=== PATIENT | female | born 1965 | race American Indian/Alaskan Native ===

== ENCOUNTER 2017-08-12 05:55 | Day surgery (SDC) | payer OTHER ==
[2017-08-10 11:08] LABS: Hematocrit 41.6 % (30.3-42.9); Mean Corpuscular HGB Conc 34 % (30-34); Mean Corpuscular Hemoglobin 30 pg (28-32); Mean Corpuscular Volume 88 fl (79-97); Platelet Count 312 K/mm3 (140-440); Red Blood Count 4.75 M/mm3 (3.65-5.03); Red Cell Distribution Width 14.6 % (13.2-15.2); White Blood Count 4.9 K/mm3 (4.5-11.0)
[2017-08-10 11:16] LABS: Anion Gap 14 mmol/L; BUN/Creatinine Ratio 15.71; Blood Urea Nitrogen 11 mg/dL (7-17); Calcium 8.8 mg/dL (8.4-10.2); Carbon Dioxide 30 mmol/L (22-30); Glucose 89 mg/dL (65-100); Potassium 3.4 mmol/L (3.6-5.0); Sodium 142 mmol/L (137-145)
--- NOTE | 2017-08-10 14:19 | Anesthesia Consultation ---
Anesthesia Consult and Med Hx Date of service: 08/10/17 - Airway Anesthetic Teeth Evaluation: Good ROM Head & Neck: Adequate Mental/Hyoid Distance: Adequate Mallampati Class: Class II Intubation Access Assessment: Probably Good - Pre-Operative Health Status ASA Pre-Surgery Classification: ASA2 Proposed Anesthetic Plan: General - Cardiovascular System Hx Hypertension: Yes (x 10 yrs) Hx Coronary Artery Disease: No (high cholesterol) - Central Nervous System Hx Psychiatric Problems: No - Gastrointestinal Hx Gastroesophageal Reflux Disease: Yes (diet controlled) - Endocrine Hx Hypothyroidism: Yes (s/p thyroidectomy) - Other Systems Hx Alcohol Use: Yes (occas) Hx Cancer: Yes
[2017-08-12] MEDS ORDERED: NACL BACTERIOSTATIC INFILTRATI ONE (06:42)
[2017-08-12] MEDS ORDERED: PERCOCET 5/325 PO PRN (06:55)
[2017-08-12] MEDS ORDERED: DILAUDID IV PRN (06:55)
[2017-08-12] MEDS ORDERED: ZOFRAN IV PRN (06:55)
[2017-08-12] MEDS ORDERED: VERSED IV NR (07:00)
[2017-08-12] MEDS ORDERED: PEPCID IV NR (07:00)
[2017-08-12] MEDS ORDERED: LACTATED RINGERS 1,000 ML IV SCH (07:00)
[2017-08-12] MEDS ORDERED: XYLOCAINE MPF 2% ONE (07:05)
[2017-08-12] MEDS ORDERED: DIPRIVAN 10 MG/ML IV ONE (07:05)
[2017-08-12] MEDS ORDERED: ZOFRAN ONE (07:06)
[2017-08-12] MEDS ORDERED: DECADRON ONE (07:06)
[2017-08-12] MEDS ORDERED: DILAUDID ONE (07:06)
[2017-08-12] MEDS ORDERED: ZEMURON IV ONE (07:06)
[2017-08-12] MEDS ORDERED: GARAMYCIN IV SCH (07:15)
--- NOTE | 2017-08-12 07:16 | Short Stay Summary ---
Short Stay Documentation Date of service: 08/12/17 Narrative H&P: Pt is a 52yo BF LMP 10 years ago s/p hysterectomy presents for surgical evaluation and treatment of left sided pelvic pain. Pelvic u/s showed a right ovary 1.1 x 1.2cm She is therefore scheduled for a Laproscopic right oophorectomy with lysis of pelvic adhesions. - History Principal diagnosis: Pelvic pain H&P: obtained from office Past Medical History: hypertension Past Surgical History: thyroidectomy, hysterectomy Social history: no significant social history, single - Allergies and Medications Current Medications: Allergies Penicillins Allergy (Verified 08/09/17 17:10) Rash tegaderm Adverse Reaction (Uncoded 08/09/17 17:10) pulls off skin Home Medications Medication Instructions Recorded Confirmed Last Taken Type Hydrochlorothiazide [Hctz] 12.5 mg PO QDAY 08/09/17 08/12/17 08/11/17 History Levothyroxine [Synthroid] 100 mcg PO QAM 08/09/17 08/12/17 08/12/17 History Pravastatin Sodium [Pravastatin] 40 mg PO QHS 08/09/17 08/12/17 08/11/17 History amLODIPine [Norvasc] 10 mg PO DAILY 08/09/17 08/12/17 08/11/17 History Active Medications Famotidine (Pepcid) 20 mg IV PREOP NR Stop: 08/12/17 23:59 Last Admin: 08/12/17 07:00 Dose: 20 mg Hydromorphone HCl (Dilaudid) 0.5 mg IV Q10MIN PRN PRN Reason: Pain , Severe (7-10) Stop: 08/12/17 23:59 Lactated Ringer's (Lactated Ringers) 1,000 mls @ 100 mls/hr IV DIRECT AINSLEY Last Admin: 08/12/17 06:45 Dose: 100 mls/hr Midazolam HCl (Versed) 2 mg IV PREOP NR Stop: 08/12/17 23:59 Last Admin: 08/12/17 07:03 Dose: 2 mg - Physical exam General appearance: no acute distress Integumentary: no rash HEENT: Atraumatic Lungs: Clear to auscultation Breasts: deferred Heart: Regular rate Gastrointestinal: normal Female Genitourinary: deferred Rectal Exam: deferred Extremities: no ischemia Neurological: Normal gait, Normal speech - Brief post op/procedure progress note Date of procedure: 08/12/17 Pre-op diagnosis: 1. Pelvic pain 2. Right ovarian cyst Post-op diagnosis: same Procedure: 1. Laproscopic right oophorectomy 2. Lysis of pelvic adhesions Anesthesia: GETA Findings: Absent uterus and cervix. Absent left ovary and fallopian tubes bilaterally. A cystic right ovary. Bowel adhesions to the left pelvic sidewall. Normal appendix. Surgeon: GRACE HIGGINS Estimated blood loss: minimal Pathology: none (right cystic ovary) Specimen disposition: to lab Condition: stable - Hospital course Hospital course: Unremarkable. - Disposition Condition at discharge: Good Disposition: DC- TO HOME OR SELFCARE - Discharge Diagnoses (1) Right ovarian cyst Status: Acute (2) Pelvic adhesions Status: Chronic Short Stay Discharge Plan Activity: no restrictions Diet: regular Wound: open to air, keep clean and dry Follow up with: BALTAZAR OCHOA MD [Primary Care Provider] - 7 Days GRACE HIGGINS MD [Staff Physician] - 14 Days Prescriptions: HYDROcodone/APAP 5-325 [[place] 5/325] 1 each PO Q6HR PRN #20 tablet PRN Reason: Pain
[2017-08-12] MEDS ORDERED: MARCAINE 0.5% 30 ML INFILTRATI ONE (07:36)
[2017-08-12] MEDS ORDERED: GARAMYCIN/NS 120MG/100ML 120 MG/100 ML BAG IV SCH (08:00)
[2017-08-12] MEDS ORDERED: CLEOCIN 600 MG/50 mL 600 MG/50 ML BAG IV NR (08:00)
[2017-08-12] MEDS ORDERED: MARCAINE 0.5% INFILTRATI ONE (09:00)
[2017-08-12] MEDS ORDERED: NACL 0.9% IR ONE ×2 (09:01)
--- NOTE | 2017-08-12 09:49 | Post Anesthesia Evaluation ---
- Post Anesthesia Evaluation Patient Participated: Yes Airway Patent: Yes Stable Respiratory Function: Yes Temp > 96.8F: Yes Pain Manageable: Yes Adequeate Hydration: Yes Anesthesia Complications: No
--- NOTE | 2017-08-12 09:49 | Anesthesia Day of Surgery ---
Anesthesia Day of Surgery - Day of Surgery Patient Examined: Yes Patient H&P Reviewed: Yes Patient is NPO: Yes
[2017-08-12] MEDS ORDERED: LOPRESSOR IV ONE ×2 (09:51→10:15)
[2017-08-12] MEDS ORDERED: PERCOCET 5/325 ONE (10:19)
--- NOTE | 2017-08-12 11:46 | Operative Report ---
Operative Report Operative Report: Date of procedure: 08/12/2017 Pre-operative diagnosis: 1. Pelvic pain 2. Right ovarian cyst 3. Suspected pelvic adhesions Post-operative diagnosis: Same with confirmed pelvic adhesions Procedure name(s): 1. Laparoscopic right oophorectomy 2. Lysis of pelvic adhesions Surgeon: Derek Wellington MD Archivist Economic History: None Anesthesia: Gen. endotracheal intubation by Dr. Dunlap EBL: Minimal Findings: Absent uterus and cervix. Absent left ovary and fallopian tubes bilaterally. A cystic right ovary. Bowel adhesions to the left pelvic sidewall. Normal appendix. Procedure: After the patient was correctly identified, she was prepped and draped in usual soft fashion and placed in both the lithotomy position. First the bladder was catheterized using a Villa catheter. Next a speculum was placed in the vaginal vault, and the cervix was absent. The speculum was removed and a sponge stick was placed. Next attention was turned to the abdomen where a periumbilical incision was made using the skin knife, and the Optiview trocar was inserted under direct visualization. After an adequate amount of abdominal insufflation, visualization of the pelvic organs found the uterus to be absent, the left ovary was also absent, and the fallopian tubes absent bilaterally. There was a small cystic right ovary adherent to the right pelvic sidewall. The appendix was found to be normal, and there were moderate amounts of adhesions from the bowel to the left pelvic sidewall. Next a suprapubic and a right lateral incision was made through which 5 mm trochars were placed in order to aid in manipulation of the pelvic organs. The right ovary was grasped and transected along the infundibulopelvic ligament using the tripolar cautery. The specimen was removed and sent to pathology. Next attention was turned to the adhesions, which were taken down using both sharp and blunt dissection, thus freeing the bowel from the left pelvic sidewall and in the pelvic cul-de-sac. Copious amounts of irrigation was performed, and the Tisseel sealant was sprayed across the dissection site along the left pelvic sidewall. At this point the procedures then considered complete. All instruments removed from the abdomen. The periumbilical incision was closed using 0 Vicryl suture in a [id number] configuration of the fascia followed by 4 Monocryl suture in a septic fashion on the skin. The suprapubic and right eyes with incisions were closed in similar fashion. Each incision was infiltrated using 0.5% Marcaine solution. The sponge stick was removed. The Villa catheter also removed. The patient tolerated the procedure well and was transported to recovery in stable condition.
[2017-08-12 12:01] VITALS: BP 124/86
[2017-08-12] MEDS ORDERED: NORCO 5/325 PO ONE (12:07)
== END 2017-08-12 12:03 | disposition home or self-care (01) ==
LOC: OR 05:55
PROVIDERS: ATTEND Obstetrics & Gynecology
DX: N83.01 Follicular cyst of right ovary (principal); I10 Essential (primary) hypertension; E78.00 Pure hypercholesterolemia, unspecified; K21.9 Gastro-esophageal reflux disease without esophagitis; E03.9 Hypothyroidism, unspecified; Z72.89 Other problems related to lifestyle; Z85.9 Personal history of malignant neoplasm, unspecified; Z90.79 Acquired absence of other genital organ(s); Z88.0 Allergy status to penicillin; Z91.09 Other allergy status, other than to drugs and biological substances; Z90.710 Acquired absence of both cervix and uterus; Z90.721 Acquired absence of ovaries, unilateral; Z98.890 Other specified postprocedural states; Z79.899 Other long term (current) drug therapy
CPT/HCPCS: 36415; 58661; 80048; 85027; 88305; A4217; C9250; J1100; J1170; J1580; J2250; J2405; J2704; J7120